=== PATIENT | female | born 1940 | race Caucasian/White ===

== ENCOUNTER → 2017-10-28 | Outpatient (CLI) | payer MEDICARE, BC ==
[~2017-10-28] MED LIST: AMITRIPTYLINE H25 M1 PO; CIPRO 500MG TA500 MG PO; HCTZ 25MG25 MG PO; LISINOPRIL20 MG PO; MAXZIDE-25MG TA1 TAB PO; PREDNISONE10 MG PO; PREMARIN .3MG0.3 MG PO; TRIAMTERENE W/H1 TA1 PO; VAGIFEM25 MCG VG; WELCHOL 625MG625 MG PO
== END ==
LOC: MC.RAD 10:44
DX: Z12.31 Encounter for screening mammogram for malignant neoplasm of breast (principal); N64.89 Other specified disorders of breast; Z98.890 Other specified postprocedural states; Z85.3 Personal history of malignant neoplasm of breast

== ENCOUNTER → 2017-11-06 | Outpatient (CLI) | payer MEDICARE, BC | LOC: MC.RAD 11:06 | DX: N64.89 Other specified disorders of breast (principal) ==

== ENCOUNTER → 2018-11-23 | Outpatient (CLI) | payer MEDICARE, BC | LOC: MC.RAD 10:39 | DX: Z12.31 Encounter for screening mammogram for malignant neoplasm of breast (principal); Z98.890 Other specified postprocedural states; Z85.3 Personal history of malignant neoplasm of breast ==

== ENCOUNTER 2019-05-21 10:23 | Emergency (ER) | payer MEDICARE, BC ==
[~2019-05-21] VITALS: Ht 157.5 cm; Wt 82.2 kg
[2019-05-21 10:36] VITALS: TEMP 98.2
[2019-05-21] MEDS ORDERED: NORCO 325 MG-51 TAB PO (11:37)
[2019-05-21] MEDS ORDERED: FLEXERIL 1010 MG/TAB PO (11:37)
[2019-05-21] MEDS ORDERED: MOBIC15 MG PO (12:03)
[2019-05-21 12:36] VITALS: BP 132/68; PULSE 69
== END 2019-05-21 12:46 | disposition home or self-care (01) ==
LOC: COL.ER 10:23
DX: S22.080A Wedge compression fracture of T11-T12 vertebra, initial encounter for closed fracture (principal); W19.XXXA Unspecified fall, initial encounter
CPT/HCPCS: J1885

== ENCOUNTER 2019-07-06 10:27 | Outpatient (CLI) | payer MEDICARE, BC ==
[~2019-07-06] VITALS: Ht 157.6 cm; Wt 77.8 kg
[~2019-07-06 10:27] MED LIST changes: +FLEXERIL 1010 MG/TAB PO; +MOBIC15 MG PO; +NORCO 325 MG-51 TAB PO
[2019-07-06 11:43] VITALS: BP 125/80; PULSE 82; TEMP 97.9
[2019-07-06] MEDS ORDERED: ZANTAC 150MG T150 MG PO (12:07)
--- NOTE | 2019-07-06 13:45 | NUR ---
Procedure cancelled per Dr Werner.Discharge instructions reviewed with pt.Pt verbalizes understanding.INT removed,catheter tip intact.Pt escorted out by this nurse via ambulatory.
== END 2019-07-06 14:03 | disposition home or self-care (01) ==
LOC: COL.CAR 10:27
DX: S22.080A Wedge compression fracture of T11-T12 vertebra, initial encounter for closed fracture (principal); S32.040S Wedge compression fracture of fourth lumbar vertebra, sequela; M43.17 Spondylolisthesis, lumbosacral region; Z90.710 Acquired absence of both cervix and uterus; Z96.641 Presence of right artificial hip joint; Z96.652 Presence of left artificial knee joint; Z88.0 Allergy status to penicillin; Z88.2 Allergy status to sulfonamides; Z88.1 Allergy status to other antibiotic agents
CPT/HCPCS: J7120

== ENCOUNTER → 2020-01-02 | Outpatient (CLI) | payer MEDICARE, BC ==
[~2020-01-02] MED LIST changes: +ZANTAC 150MG T150 MG PO
== END ==
LOC: MC.RAD 11:02
DX: Z12.31 Encounter for screening mammogram for malignant neoplasm of breast (principal)

== ENCOUNTER → 2021-01-03 | Outpatient (CLI) | payer MEDICARE, BC | LOC: MC.RAD 12:47 | DX: Z12.31 Encounter for screening mammogram for malignant neoplasm of breast (principal); N64.9 Disorder of breast, unspecified; Z85.3 Personal history of malignant neoplasm of breast; Z98.890 Other specified postprocedural states ==

== ENCOUNTER → 2021-01-15 | Outpatient (CLI) | payer MEDICARE, BC | LOC: MC.RAD | DX: N60.01 Solitary cyst of right breast (principal) ==

== ENCOUNTER → 2021-02-14 | Outpatient (CLI) | payer MEDICARE, BC | LOC: COL.RAD 11:27 | DX: N30.20 Other chronic cystitis without hematuria (principal); Z87.442 Personal history of urinary calculi ==

== ENCOUNTER → 2023-08-13 | Outpatient (CLI) | payer MEDICARE, BC ==
[~2023-08-13] MED LIST changes: +FLAGYL500 MG PO
== END ==
LOC: CANSCHCLI → COL.RAD 08-12 11:15
DX: N28.1 Cyst of kidney, acquired (principal)

== ENCOUNTER → 2024-08-30 | Outpatient (CLI) | payer MEDICARE, BC | LOC: MC.RAD 12:51 | DX: Z12.31 Encounter for screening mammogram for malignant neoplasm of breast (principal) ==